=== PATIENT | male | born 1960 | race Caucasian/White ===

== ENCOUNTER 2021-08-26 11:14 | Outpatient (CLI) | payer MEDICARE, MEDICAID ==
[2021-08-26 12:42] LABS: Hemoglobin 9.4 g/dL (13.5-17.5); Mean Corpuscular HGB CONC 31.4 g/dL (32.0-36.0); Mean Corpuscular Hemoglobin 26.3 pg (27.0-33.0); Mean Corpuscular Volume 83.5 fl (81.2-95.1); Mean Platelet Volume 9.9 fl (7.4-10.4); Platelet Count 228 10x3/uL (150-450); RBC Distribution Width 19.1 % (11.5-14.5); Red Blood Cell (RBC) Count 3.58 10x6/uL (4.32-5.72); White Blood Cell (WBC) Count 5.9 10x3/uL (3.5-10.5)
[2021-08-26 12:54] LABS: Anion Gap 16 mmol/L (10-20); BUN (Urea Nitrogen) 12 mg/dL (8.4-25.7); Calc. Creatinine Clearance 0 mL/min (70-130); Calcium 7.9 mg/dL (7.8-10.44); Carbon Dioxide 22 mmol/L (22-29); Chloride 101 mmol/L (98-107); Glucose 99 mg/dL (70-105); Potassium 4.3 mmol/L (3.5-5.1); Sodium 135 mmol/L (136-145)
[2021-08-26 12:57] LABS: INR-International Normal Ratio 3.5; Prothrombin Time 36.6 sec (9.5-12.1)
[2021-08-26 22:42] LABS: SARS-CoV-2 PCR by NAA Not Detected (NotDetected)
== END 2021-08-26 11:15 | disposition home or self-care (01) ==
LOC: LABBT 11:14
PROVIDERS: ATTEND Internal Medicine Cardiovascular Disease
DX: Z01.812 Encounter for preprocedural laboratory examination (principal); I48.91 Unspecified atrial fibrillation; Z20.822 Contact with and (suspected) exposure to COVID-19
CPT/HCPCS: 80048; 85027; 85610; 85730; U0003; U0005

== ENCOUNTER → 2021-08-31 | Day surgery (SDC) | payer MEDICARE, MEDICAID ==
[2021-08-27 13:23] VITALS: BMI 33.6
[~2021-08-31] MED LIST: Fentanyl 100 MCG/2 ML VIAL ONE; Glycopyrrolate 0.2 MG/ML 5 ML SYRINGE ONE; Heparin 10,000 UNITS/ 10 ML VIAL ONE; Heparin 25,000 units/D5W 500 ML ONE; Isoproterenol 0.2 MG/1 ML AMP ONE; Ketorolac Tromethamine 30 MG/ML VIAL ONE; Ondansetron PF 4 MG/2 ML Vial ONE; PROPOFOL 20 ML ONE; PROPOFOL 200 MG/20 ML VIAL ONE; Protamine Sulfate 50 MG/5 ML VIAL ONE; Rocuronium Bromide 10 MG/ML (10ML VIAL) ONE; Succinylcholine 200 MG/10 ml SYRINGE FS ONE; Sucralfate 1 GM TAB PO SCH
== END | disposition home or self-care (01) ==
LOC: SDC 06:59
PROVIDERS: ATTEND Internal Medicine Cardiovascular Disease
PROC: B244ZZ3 Ultrasonography of Right Heart, Intravascular (ICD-10-PCS; principal; 2021-08-31)
PROC: 02583ZZ Destruction of Conduction Mechanism, Percutaneous Approach (ICD-10-PCS; 2021-08-31)
PROC: 02K83ZZ Map Conduction Mechanism, Percutaneous Approach (ICD-10-PCS; 2021-08-31)
PROC: 4A023FZ Measurement of Cardiac Rhythm, Percutaneous Approach (ICD-10-PCS; 2021-08-31)
PROC: 4A0234Z Measurement of Cardiac Electrical Activity, Percutaneous Approach (ICD-10-PCS; 2021-08-31)
DX: I48.19 Other persistent atrial fibrillation (principal); I48.4 Atypical atrial flutter; I42.1 Obstructive hypertrophic cardiomyopathy; I11.0 Hypertensive heart disease with heart failure; I50.32 Chronic diastolic (congestive) heart failure; G89.4 Chronic pain syndrome; K21.9 Gastro-esophageal reflux disease without esophagitis; F17.210 Nicotine dependence, cigarettes, uncomplicated; I25.10 Atherosclerotic heart disease of native coronary artery without angina pectoris; E66.9 Obesity, unspecified; Z68.33 Body mass index [BMI] 33.0-33.9, adult; Z79.01 Long term (current) use of anticoagulants; Z79.899 Other long term (current) drug therapy; Z88.5 Allergy status to narcotic agent
CPT/HCPCS: 85347 ×2; 93005; C1732 ×2; C1759; C1884; J1644; J1885; J2405; J2704; J2720; J3010

== ENCOUNTER 2022-05-12 17:23 | Inpatient (IN) | payer MEDICARE, MEDICAID ==
[~2022-05-12 17:23] MED LIST changes: -Fentanyl 100 MCG/2 ML VIAL ONE; -Glycopyrrolate 0.2 MG/ML 5 ML SYRINGE ONE; -Heparin 10,000 UNITS/ 10 ML VIAL ONE; -Heparin 25,000 units/D5W 500 ML ONE; +Iopamidol-370 76% 500 ML 1 ML ONE; -Isoproterenol 0.2 MG/1 ML AMP ONE; -Ketorolac Tromethamine 30 MG/ML VIAL ONE; -Ondansetron PF 4 MG/2 ML Vial ONE; -PROPOFOL 20 ML ONE; -PROPOFOL 200 MG/20 ML VIAL ONE; -Protamine Sulfate 50 MG/5 ML VIAL ONE; -Rocuronium Bromide 10 MG/ML (10ML VIAL) ONE; -Succinylcholine 200 MG/10 ml SYRINGE FS ONE; -Sucralfate 1 GM TAB PO SCH
[2022-05-12] MEDS ORDERED: EPINEPHrine 1 MG/10 ML Abboject SYRINGE ONE (17:30)
[2022-05-12] MEDS ORDERED: Atropine Sulfate 1 mg/1 ml Vial ONE (17:30)
[2022-05-12] MEDS ORDERED: Sodium Bicarb 50 MEQ/50 ML Abboject 8.4% SYRINGE ONE (17:30)
[2022-05-12 18:02] LABS: Hemoglobin 9.3 g/dL (14.0-18.0); Mean Corpuscular HGB CONC 31.8 g/dL (32.0-36.0); Mean Corpuscular Hemoglobin 27.6 pg (27.0-31.0); Mean Corpuscular Volume 86.5 fL (78.0-98.0); Mean Platelet Volume 8.5 fL (7.4-10.4); Platelet Count 225 thou/uL (130-400); RBC Distribution Width 16.5 % (11.5-14.5); Red Blood Cell (RBC) Count 3.39 mill/uL (4.70-6.10); White Blood Cell (WBC) Count 13.4 thou/uL (4.8-10.8)
[2022-05-12 18:03] LABS: #Eosinphils 0.1 thou/uL (0.0-0.7); #Lymphocytes 3.1 thou/uL (1.20-3.40); #Monocytes 1.7 thou/uL (0.11-0.59); #Neutrophils 8.5 thou/uL (1.40-6.50); %Basophils 0.2 % (0.0-1.0); %Eosinophils 0.8 % (0.0-10.0); %Lymphocytes 23.1 % (21.0-51.0); %Monocytes 12.4 % (0.0-10.0); %Neutrophils 63.5 % (42.0-75.0)
[2022-05-12] MEDS ORDERED: Fentanyl 100 MCG/2 ML VIAL ONE ×2 (18:05→18:13)
[2022-05-12 18:10] LABS: PTT 54.6 sec (22.9-36.1)
[2022-05-12 18:12] LABS: Prothrombin Time 133.2 sec (12.0-14.7)
[2022-05-12 18:13] LABS: INR-International Normal Ratio 18.2
[2022-05-12 18:19] LABS: ALT (SGPT) 167 U/L (8-55); AST (SGOT) 252 U/L (5-34); Albumin 4.7 g/dL (3.5-5.0); Alkaline Phosphatase 112 U/L (40-110); Anion Gap 24 mmol/L (10-20); BUN (Urea Nitrogen) 25 mg/dL (8.4-25.7); Bilirubin, Total 1.7 mg/dL (0.2-1.2); CK (CPK) 441 U/L (30-200); Calc. Creatinine Clearance 0 mL/min (70-130); Calcium 8.3 mg/dL (7.8-10.44); Carbon Dioxide 15 mmol/L (22-29); Chloride 85 mmol/L (98-107); Estimated GFR 32; Globulin 3.2 g/dL (2.4-3.5); Glucose 120 mg/dL (70-105); Magnesium 1.5 mg/dL (1.6-2.6); Potassium 4.9 mmol/L (3.5-5.1); Protein, Total 7.9 g/dL (6.0-8.3)
[2022-05-12 18:21] LABS: Sodium 119 mmol/L (136-145)
[2022-05-12] MEDS ORDERED: Norepinephrine 4 MG/4 ML VIAL ONE (18:24)
[2022-05-12] MEDS ORDERED: Fentanyl CADD 100 ML IV SCH ×2 (18:30→23:00)
[2022-05-12 18:43] LABS: CKMB 13.8 ng/mL (0-6.6)
[2022-05-12 19:59] LABS: Bilirubin Negative (Negative); Blood, Urine Negative (Negative); Clarity Turbid (Clear); Glucose, Urine (Dipstick) Normal (Negative); Ketone, Urine Negative (Negative); Leukocyte 25 Leu/uL (Negative); Nitrite Negative (Negative); Protein, Urine (Dipstick) 50 mg/dL (Neg-Trace); RBC/HPF 0-3 HPF (0-3); Specific Gravity, Urine 1.018 (1.002-1.036); Squamous Epithelial None Seen HPF (0-3); Urobilinogen Normal mg/dL (Less than 2)
[2022-05-12 20:09] LABS: Bacteria/HPF Rare-Few HPF (None Seen)
[2022-05-12 20:20] LABS: Actual Bicarbonate (HCO3a) 8.6 mEq/L (22-28); Analyzer IN Cardio ER; Base Excess (BEa) -17.9 mEq/L (-2.0 to +3.0); Calcium, Ionized (arterial) 0.97 mmol/L (1.12-1.30); Carboxyhemoglobin (COHb) 0.9 gm% (0.0-3.0); Hemoglobin (Hb) 8.9 g/dL (14.0-18.0); O2 Tension (PaO2), arterial 493.6 mmHg (80.0-100.0); Potassium - ABG Lab 4.09 mmol/L (3.70-5.30)
[2022-05-12 20:30] LABS: Analyzer IN Cardio ER; Base Excess -19.8 mEq/L (-2.0 to +3.0); Chloride (VBG) 88 mmol/L (98-106); Hemoglobin (Hb) 9.3 g/dL (13.1-17.2); Potassium (VBG) 4.72 mmol/L (3.70-5.30); Sodium 121.7 mmol/L (133-146)
[2022-05-12] MEDS ORDERED: Magnesium Sulfate In Water 4 GM in Premix Bag 1 BAG IVPB SCH (20:30)
[2022-05-12 20:31] LABS: Actual Bicarbonate (HCO3v) 10 mEq/L (22-28)
[2022-05-12 20:31] LABS: SARS-CoV-2 NAA Rapid Test Not Detected (NotDetected)
[2022-05-12 20:32] LABS: Puncture Site RBA; pH, Arterial 7.19 (7.35-7.45)
[2022-05-12] MEDS ORDERED: Magnesium 2 GM/50 ML BAG (IN WATER) ONE (20:42)
[2022-05-12 20:43] LABS: Creatinine, Urine 97.24 mg/dL (63-166); Protein, Urine Random Quant 52 mg/dL (1-14); Sodium, Urine Less than 20 mmol/L (Not Available); Urea Nitrogen, Random Urine 559 mg/dl
[2022-05-12] MEDS ORDERED: Cefepime 2 GM VIAL ONE (20:43)
[2022-05-12] MEDS ORDERED: Vancomycin 1 GM/200 ML BAG ONE (20:44)
[2022-05-12] MEDS ORDERED: Furosemide 20 MG/2 ML VIAL ONE (21:09)
[2022-05-12 21:15] LABS: Anion Gap 28 mmol/L (10-20); BUN (Urea Nitrogen) 25 mg/dL (8.4-25.7); Calc. Creatinine Clearance 0 mL/min (70-130); Calcium 7.8 mg/dL (7.8-10.44); Carbon Dioxide 10 mmol/L (22-29); Chloride 89 mmol/L (98-107); Estimated GFR 31; Glucose 59 mg/dL (70-105); Lactic Acid 9.6 mmol/L (0.5-2.2); Potassium 5.8 mmol/L (3.5-5.1); Sodium 121 mmol/L (136-145)
[2022-05-12 21:18] LABS: PTT 53.9 sec (22.9-36.1)
[2022-05-12 21:22] LABS: Troponin I 0.112 ng/mL (< 0.028)
[2022-05-12 21:47] LABS: Prothrombin Time Greater than 150.0 sec (12.0-14.7)
[2022-05-12 22:22] LABS: Base Excess (BEa) -14.9 mEq/L (-2.0 to +3.0); Calcium, Ionized (arterial) 0.97 mmol/L (1.12-1.30); Carboxyhemoglobin (COHb) 0.3 gm% (0.0-3.0); Hemoglobin (Hb) 9.4 g/dL (14.0-18.0); Potassium - ABG Lab 3.85 mmol/L (3.70-5.30); pH, Arterial 7.34 (7.35-7.45)
[2022-05-12 22:28] LABS: CO2 Tension 17.3 mmHg (35.0-45.0); Puncture Site RBA
[2022-05-12 22:29] LABS: ALV-art Gradient 196.475 mmHg (0-20)
[2022-05-12] MEDS ORDERED: Phytonadione 10 MG/ML AMP SLOW IVP SCH (22:30)
[2022-05-12] MEDS ORDERED: Ondansetron PF 4 MG/2 ML Vial IVP PRN (22:46)
[2022-05-12] MEDS ORDERED: Acetaminophen 325 MG TAB PO PRN (22:46)
[2022-05-12] MEDS ORDERED: NOREPINEPHRINE 8 MG/250 ML-D5W 250 ML IVPB PRN (22:55)
[2022-05-12] MEDS ORDERED: DISCONTINUE PREVIOUS NARCOTIC PAIN MEDICATIONS AND BENZODIAZEPINES FS SCH (23:00)
[2022-05-12] MEDS ORDERED: Morphine 4 MG/ML VIAL SLOW IVP PRN (23:00)
[2022-05-12] MEDS ORDERED: Furosemide 20 MG/2 ML VIAL SLOW IVP SCH (23:00)
[2022-05-12] MEDS ORDERED: Propofol BOLUS 1,000 MG/100 ML VIAL IV PRN (23:00)
[2022-05-12] MEDS ORDERED: Ventilator Sedation Protocol 1 EACH FS SCH (23:00)
[2022-05-12] MEDS ORDERED: Fentanyl BOLUS 250 ML IVPB PRN (23:00)
[2022-05-12] MEDS ORDERED: Magnesium 2 GM/50 ML(in water) 2 GM in Premix Bag 1 BAG IVPB SCH (23:15)
[2022-05-12 23:56] LABS: Lactic Acid 6.5 mmol/L (0.5-2.2)
[2022-05-13 00:01] LABS: Troponin I 0.194 ng/mL (< 0.028)
[2022-05-13] MEDS ORDERED: Metoprolol Tartrate 5 MG/5 ML VIAL IVP SCH (02:30)
[2022-05-13 03:58] LABS: Lactic Acid 6.4 mmol/L (0.5-2.2)
[2022-05-13 04:00] LABS: ALT (SGPT) 248 U/L (8-55); AST (SGOT) 379 U/L (5-34); Albumin 4.5 g/dL (3.5-5.0); Alkaline Phosphatase 119 U/L (40-110); Anion Gap 27 mmol/L (10-20); BUN (Urea Nitrogen) 30 mg/dL (8.4-25.7); Bilirubin, Total 2.6 mg/dL (0.2-1.2); Calc. Creatinine Clearance 50 mL/min (70-130); Calcium 8.2 mg/dL (7.8-10.44); Carbon Dioxide 12 mmol/L (22-29); Chloride 87 mmol/L (98-107); Estimated GFR 29; Magnesium 2.5 mg/dL (1.6-2.6); Potassium 4.6 mmol/L (3.5-5.1); Protein, Total 7.5 g/dL (6.0-8.3); Sodium 121 mmol/L (136-145)
[2022-05-13 04:02] LABS: Glucose 55 mg/dL (70-105)
[2022-05-13] MEDS ORDERED: Dextrose 5% in Water 1,000 ML IV PRN (04:05)
[2022-05-13] MEDS ORDERED: Dextrose 50% Abboject 50 ML SYRINGE SLOW IVP PRN (04:05)
[2022-05-13] MEDS ORDERED: Sodium Bicarb 50 MEQ/50 ML Abboject 8.4% SYRINGE IVP SCH (04:15)
[2022-05-13 04:26] LABS: Troponin I 0.207 ng/mL (< 0.028)
[2022-05-13 04:33] LABS: Band 35 % (5-11); Hemoglobin 9.5 g/dL (14.0-18.0); Hypochromia SLIGHT = 6-15 cells (100X) (0-5/hpf); MDiff Complete? YES; Mean Corpuscular HGB CONC 32.7 g/dL (32.0-36.0); Mean Corpuscular Hemoglobin 28.3 pg (27.0-31.0); Mean Corpuscular Volume 86.6 fL (78.0-98.0); Mean Platelet Volume 7.8 fL (7.4-10.4); Monocytes 6 % (0-10); Neutrophil 59 % (42-75); Platelet Count 282 thou/uL (130-400); Platelet Morphology Comment Appears Adequate; RBC Distribution Width 16.3 % (11.5-14.5); Red Blood Cell (RBC) Count 3.34 mill/uL (4.70-6.10); White Blood Cell (WBC) Count 29.5 thou/uL (4.8-10.8)
[2022-05-13] MEDS: Sodium Bicarbonate 150 MEQ in Dextrose 5% in Water 1,000 ML IV SCH (04:55)
[2022-05-13] MEDS: Furosemide 40 MG/4 ML VIAL SLOW IVP SCH ×2 (05:06→13:45)
[2022-05-13] MEDS ORDERED: Vancomycin 1 GM in Premix Bag 1 BAG IVPB SCH (05:30)
[2022-05-13] MEDS ORDERED: Meropenem 1 GM in Sodium Chloride 0.9% 100 ML IVPB SCH (05:30)
[2022-05-13 05:44] LABS: PTT 53.3 sec (22.9-36.1)
[2022-05-13 05:45] LABS: Prothrombin Time 132.9 sec (12.0-14.7)
[2022-05-13 05:57] LABS: INR-International Normal Ratio 18.2
[2022-05-13 07:00] LABS: Actual Bicarbonate (HCO3a) 15.7 mEq/L (22-28); CO2 Tension 33.8 mmHg (35.0-45.0); Carboxyhemoglobin (COHb) 0.5 gm% (0.0-3.0); Hemoglobin (Hb) 9.9 g/dL (14.0-18.0); O2 Tension (PaO2), arterial 104.6 mmHg (80.0-100.0); Potassium - ABG Lab 3.65 mmol/L (3.70-5.30); pH, Arterial 7.29 (7.35-7.45)
[2022-05-13 07:01] LABS: Puncture Site RBA
[2022-05-13] MEDS ORDERED: Famotidine 20 MG TAB PO SCH (09:00)
[2022-05-13 09:44] VITALS: BMI 31.1
[2022-05-13] MEDS: Midazolam HCl 2 mg/2 ml Vial SLOW IVP PRN ×4 (13:00→22:30)
[2022-05-13] MEDS ORDERED: levETIRAcetam 500 MG/5 ML VIAL SLOW IVP SCH ×3 (13:15→21:00)
[2022-05-13 13:42] LABS: Anion Gap 22 mmol/L (10-20); BUN (Urea Nitrogen) 35 mg/dL (8.4-25.7); Calc. Creatinine Clearance 48 mL/min (70-130); Calcium 7.7 mg/dL (7.8-10.44); Carbon Dioxide 19 mmol/L (22-29); Chloride 88 mmol/L (98-107); Estimated GFR 28; Glucose 86 mg/dL (70-105); Sodium 125 mmol/L (136-145)
[2022-05-13] MEDS: Meropenem 1 GM in Sodium Chloride 0.9% 100 ML IVPB SCH (13:45)
[2022-05-13] MEDS: Famotidine 20 MG TAB PO SCH (13:53)
[2022-05-13] MEDS: Lorazepam 2 MG/ML VIAL SLOW IVP PRN ×3 (16:38→19:32)
[2022-05-13] MEDS ORDERED: levETIRAcetam in NS 3,000 MG in Premix Bag 2 BAG IVPB SCH (18:00)
[2022-05-13] MEDS ORDERED: Lacosamide 200 MG in Sodium Chloride 0.9% 50 ML IVPB SCH ×2 (18:15→21:00)
[2022-05-13] MEDS: Propofol 1,000 MG/100 ML VIAL IV PRN (22:41)
[2022-05-14] MEDS: Meropenem 1 GM in Sodium Chloride 0.9% 100 ML IVPB SCH ×2 (02:38→14:10)
[2022-05-14] MEDS: Sodium Bicarbonate 150 MEQ in Dextrose 5% in Water 1,000 ML IV SCH (02:38)
[2022-05-14 05:06] LABS: ALT (SGPT) 386 U/L (8-55); AST (SGOT) 624 U/L (5-34); Albumin 3.5 g/dL (3.5-5.0); Alkaline Phosphatase 92 U/L (40-110); Anion Gap 18 mmol/L (10-20); BUN (Urea Nitrogen) 48 mg/dL (8.4-25.7); Bilirubin, Total 2.6 mg/dL (0.2-1.2); Calc. Creatinine Clearance 44 mL/min (70-130); Calcium 7.8 mg/dL (7.8-10.44); Carbon Dioxide 23 mmol/L (22-29); Chloride 88 mmol/L (98-107); Estimated GFR 25; Globulin 2.4 g/dL (2.4-3.5); Glucose 116 mg/dL (70-105); Potassium 3.1 mmol/L (3.5-5.1); Protein, Total 5.9 g/dL (6.0-8.3); Sodium 126 mmol/L (136-145)
[2022-05-14 05:09] LABS: INR-International Normal Ratio 2.5; PTT 38.7 sec (22.9-36.1); Prothrombin Time 27.9 sec (12.0-14.7)
[2022-05-14 05:11] LABS: #Lymphocytes 0.8 thou/uL (1.20-3.40); #Monocytes 0.8 thou/uL (0.11-0.59); #Neutrophils 13.6 thou/uL (1.40-6.50); %Basophils 0.1 % (0.0-1.0); %Eosinophils 0.1 % (0.0-10.0); %Lymphocytes 5.5 % (21.0-51.0); %Monocytes 5.5 % (0.0-10.0); %Neutrophils 88.9 % (42.0-75.0); Hemoglobin 7.3 g/dL (14.0-18.0); Mean Corpuscular Volume 84.8 fL (78.0-98.0); Mean Platelet Volume 8.1 fL (7.4-10.4); Platelet Count 174 thou/uL (130-400); RBC Distribution Width 16.5 % (11.5-14.5); Red Blood Cell (RBC) Count 2.59 mill/uL (4.70-6.10); White Blood Cell (WBC) Count 15.3 thou/uL (4.8-10.8)
[2022-05-14] MEDS: Vancomycin 1 GM in Premix Bag 1 BAG IVPB SCH (05:51)
[2022-05-14] MEDS: Furosemide 40 MG/4 ML VIAL SLOW IVP SCH (06:52)
[2022-05-14] MEDS: Propofol 1,000 MG/100 ML VIAL IV PRN (06:56)
[2022-05-14 07:04] LABS: Actual Bicarbonate (HCO3a) 19.8 mEq/L (22-28); CO2 Tension 27.8 mmHg (35.0-45.0); Calcium, Ionized (arterial) 0.96 mmol/L (1.12-1.30); Carboxyhemoglobin (COHb) 0.3 gm% (0.0-3.0); Hemoglobin (Hb) 9.2 g/dL (14.0-18.0); Potassium - ABG Lab 2.87 mmol/L (3.70-5.30); pH, Arterial 7.47 (7.35-7.45)
[2022-05-14 07:10] LABS: Puncture Site RRA
[2022-05-14] MEDS: Famotidine 20 MG TAB PO SCH (08:33)
[2022-05-14] MEDS: levETIRAcetam 500 MG/5 ML VIAL SLOW IVP SCH ×2 (08:34→20:51)
[2022-05-14] MEDS: Lacosamide 200 MG in Sodium Chloride 0.9% 50 ML IVPB SCH ×2 (08:59→20:51)
[2022-05-14] MEDS ORDERED: Potassium Chloride 40 MEQ in Premix Bag 1 BAG IVPB STA (09:07)
[2022-05-14 14:28] VITALS: BP 134/84
[2022-05-15] MEDS: Sodium Bicarbonate 150 MEQ in Dextrose 5% in Water 1,000 ML IV SCH (00:07)
[2022-05-15] MEDS: Meropenem 1 GM in Sodium Chloride 0.9% 100 ML IVPB SCH (02:11)
[2022-05-15 04:41] LABS: #Basophils 0.1 thou/uL (0.0-0.2); #Lymphocytes 0.5 thou/uL (1.20-3.40); #Monocytes 0.6 thou/uL (0.11-0.59); #Neutrophils 11.1 thou/uL (1.40-6.50); %Basophils 0.5 % (0.0-1.0); %Eosinophils 0.2 % (0.0-10.0); %Lymphocytes 4.2 % (21.0-51.0); %Monocytes 4.5 % (0.0-10.0); %Neutrophils 90.6 % (42.0-75.0); Hemoglobin 7.9 g/dL (14.0-18.0); Mean Corpuscular HGB CONC 31.9 g/dL (32.0-36.0); Mean Corpuscular Hemoglobin 27.2 pg (27.0-31.0); Mean Corpuscular Volume 85.3 fL (78.0-98.0); Mean Platelet Volume 8.4 fL (7.4-10.4); Platelet Count 157 thou/uL (130-400); RBC Distribution Width 16.6 % (11.5-14.5); Red Blood Cell (RBC) Count 2.89 mill/uL (4.70-6.10); White Blood Cell (WBC) Count 12.2 thou/uL (4.8-10.8)
[2022-05-15 05:02] LABS: INR-International Normal Ratio 1.7; PTT 34.6 sec (22.9-36.1); Prothrombin Time 20.3 sec (12.0-14.7)
[2022-05-15 05:09] LABS: ALT (SGPT) 503 U/L (8-55); AST (SGOT) 592 U/L (5-34); Albumin 3.8 g/dL (3.5-5.0); Alkaline Phosphatase 100 U/L (40-110); Anion Gap 17 mmol/L (10-20); BUN (Urea Nitrogen) 48 mg/dL (8.4-25.7); Bilirubin, Total 3.6 mg/dL (0.2-1.2); Calc. Creatinine Clearance 53 mL/min (70-130); Calcium 8.5 mg/dL (7.8-10.44); Carbon Dioxide 28 mmol/L (22-29); Chloride 88 mmol/L (98-107); Estimated GFR 30; Globulin 2.8 g/dL (2.4-3.5); Glucose 122 mg/dL (70-105); Magnesium 1.8 mg/dL (1.6-2.6); Protein, Total 6.6 g/dL (6.0-8.3); Sodium 130 mmol/L (136-145)
[2022-05-15 05:35] LABS: Potassium 2.8 mmol/L (3.5-5.1)
[2022-05-15 05:53] LABS: Vancomycin, Trough 18.5 ug/mL
[2022-05-15] MEDS: Vancomycin 1 GM in Premix Bag 1 BAG IVPB SCH (06:04)
[2022-05-15] MEDS ORDERED: Dextrose 5 % And 0.9 % NaCl 1,000 ML IV SCH (07:15)
[2022-05-15 07:16] LABS: Actual Bicarbonate (HCO3a) 25.8 mEq/L (22-28); Base Excess (BEa) 2.8 mEq/L (-2.0 to +3.0); CO2 Tension 33.1 mmHg (35.0-45.0); Hemoglobin (Hb) 8.5 g/dL (14.0-18.0); O2 Tension (PaO2), arterial 69.8 mmHg (80.0-100.0); Potassium - ABG Lab 2.48 mmol/L (3.70-5.30); pH, Arterial 7.51 (7.35-7.45)
[2022-05-15 07:25] LABS: Puncture Site RBA
[2022-05-15 07:26] LABS: ALV-art Gradient 174.025 mmHg (0-20)
[2022-05-15] MEDS ORDERED: Magnesium 2 GM/50 ML(in water) 2 GM in Premix Bag 1 BAG IVPB SCH (08:00)
[2022-05-15] MEDS ORDERED: Potassium Chloride 40 MEQ in Premix Bag 1 BAG IVPB SCH (08:00)
[2022-05-15 08:24] VITALS: TEMP 98.5
[2022-05-15] MEDS: Lacosamide 200 MG in Sodium Chloride 0.9% 50 ML IVPB SCH (08:29)
[2022-05-15] MEDS: Famotidine 20 MG TAB PO SCH (08:29)
[2022-05-15] MEDS: levETIRAcetam 500 MG/5 ML VIAL SLOW IVP SCH (08:56)
[2022-05-15] MEDS: Morphine 10 MG/ML VIAL SLOW IVP PRN ×3 (12:24→14:44)
[2022-05-15] MEDS: Midazolam HCl 2 mg/2 ml Vial SLOW IVP PRN (12:24)
== END 2022-05-15 15:35 | disposition expired | DRG 871 ==
LOC: ERS 17:23 → CCU 17:45
PROVIDERS: ADMIT Internal Medicine; ATTEND Internal Medicine
PROC: 5A1945Z Respiratory Ventilation, 24-96 Consecutive Hours (ICD-10-PCS; principal; 2022-05-12)
PROC: 3E043XZ Introduction of Vasopressor into Central Vein, Percutaneous Approach (ICD-10-PCS; 2022-05-12)
PROC: 0D9670Z Drainage of Stomach with Drainage Device, Via Natural or Artificial Opening (ICD-10-PCS; 2022-05-12)
PROC: 3E0G76Z Introduction of Nutritional Substance into Upper GI, Via Natural or Artificial Opening (ICD-10-PCS; 2022-05-12)
PROC: 5A12012 Performance of Cardiac Output, Single, Manual (ICD-10-PCS; 2022-05-12)
PROC: 06HY33Z Insertion of Infusion Device into Lower Vein, Percutaneous Approach (ICD-10-PCS; 2022-05-12)
PROC: 3E04329 Introduction of Other Anti-infective into Central Vein, Percutaneous Approach (ICD-10-PCS; 2022-05-12)
PROC: 30233L1 Transfusion of Nonautologous Fresh Plasma into Peripheral Vein, Percutaneous Approach (ICD-10-PCS; 2022-05-13)
DX: A41.9 Sepsis, unspecified organism (principal); J96.01 Acute respiratory failure with hypoxia; R65.21 Severe sepsis with septic shock; I42.1 Obstructive hypertrophic cardiomyopathy; N17.9 Acute kidney failure, unspecified; N39.0 Urinary tract infection, site not specified; E22.2 Syndrome of inappropriate secretion of antidiuretic hormone; G93.1 Anoxic brain damage, not elsewhere classified; G93.49 Other encephalopathy; Z51.5 Encounter for palliative care; Z66 Do not resuscitate; Z20.822 Contact with and (suspected) exposure to COVID-19; I48.91 Unspecified atrial fibrillation; I46.2 Cardiac arrest due to underlying cardiac condition; I45.10 Unspecified right bundle-branch block; F17.210 Nicotine dependence, cigarettes, uncomplicated; E87.5 Hyperkalemia; I11.0 Hypertensive heart disease with heart failure; I50.9 Heart failure, unspecified; E83.42 Hypomagnesemia; D64.9 Anemia, unspecified; F41.9 Anxiety disorder, unspecified; F31.9 Bipolar disorder, unspecified; G93.89 Other specified disorders of brain; E87.6 Hypokalemia; Z78.1 Physical restraint status; Z79.01 Long term (current) use of anticoagulants; Z88.5 Allergy status to narcotic agent; Z79.51 Long term (current) use of inhaled steroids; Z79.02 Long term (current) use of antithrombotics/antiplatelets; Z79.899 Other long term (current) drug therapy; Z98.890 Other specified postprocedural states; Z82.49 Family history of ischemic heart disease and other diseases of the circulatory system
CPT/HCPCS: 36416; 36430; 36556; 36600; 70450; 71045; 71275; 80053; 80202; 81003; 81015; 82550; 82553; 82570; 82805; 83605; 83735; 83880; 83930; 83935; 84156; 84300; 84443; 84484; 84540; 85025; 85610; 85730; 86850; 86900; 86901; 87040; 87086; 92950; 93005; 93306; 94002; 94003; 95712; 95819; 95957; 96365; 96366; 96367; 96368; 96375; 96376; 99292; C9254; J0171; J0282; J0461; J0692; J1940; J1953; J2060; J2185; J2250; J2270; J2704; J3010; J3370; J3430; J3475; J3480; J3490; J7042; J7070; J7999; P9059; Q9967